=== PATIENT | female | born 1965 | race Caucasian/White ===

== ENCOUNTER 2017-07-06 08:30 | Emergency (ER) | payer OTHER ==
[~2017-07-06] VITALS: Wt 78.0 kg
--- NOTE | 2017-07-06 08:51 | ERD ---
ER Documentation Chief Complaint Chief Complaint SUBSTERNAL CP WITH COUGH AND CONGESTION FOR 2 DAYS. MILD DISTRESS NOTED HPI This is a 51-year-old female with a past medical history of diabetes, GERD who is presenting with 2 days of fever, cough and congestion, woke up this morning with a headache and nausea with associated chest pain with coughing. The patient endorses GERD symptoms today as well which she feels may also be causing her burning moderate chest pain and associated intermittent nausea. She reports muscle aches and pains as well. Her headache was discribed as mild to moderate, generalized, aching, not associated with photophobia or phonophobia or neck stiffness/pain. Her daughter was recently diagnosed with the flu. The patient has had no vision changes. The patient does not endorse neck pain. The patient denies lightheadedness or dizziness. The patient has had no shortness of breath or trouble breathing. The patient denies vomiting. The patient endorses mild epigastric tenderness but denies changes to bowel movements or urination. The patient has had no focal deficits. The patient has had no weakness or numbness or tingling to the face or extremities. She does take an aspirin daily. ROS All systems reviewed and are negative except as per history of present illness. Medications Home Meds Reported Medications Pantoprazole* (Pantoprazole*) 40 Mg Tablet.dr, 40 MG PO AC BREAKFAST, TAB 07/06/17 Loratadine* (Loratadine*) 10 Mg Tablet, 10 MG PO DAILY, #30 TAB 07/06/17 Linagliptin (TRADJENTA) 5 Mg Tablet, 5 MG PO DAILY, TAB 07/06/17 Metformin* (Glucophage*) 500 Mg Tab, 500 MG PO BID WITH MEALS, #60 TAB 07/06/17 Aspirin* (Aspirin* Chew) 81 Mg Tab.chew, 81 MG PO DAILY, TAB.CHEW 07/06/17 Allergies Allergies: Coded Allergies: Penicillins (Verified Allergy, Severe, 07/06/17) PMhx/Soc History of Surgery: No Hx Neurological Disorder: No Hx Respiratory Disorders: No Hx Cardiac Disorders: Yes (DM) Hx Psychiatric Problems: No Hx Miscellaneous Medical Probl: Yes (GERD) Hx Alcohol Use: No Hx Substance Use: No Hx Tobacco Use: No FmHx Family History: diabetes, No coronary disease Physical Exam Vitals Vital Signs Date Time Temp Pulse Resp B/P Pulse Ox O2 Delivery O2 Flow Rate FiO2 07/06/17 13:03 97.6 69 17 113/62 98 Room Air 07/06/17 12:15 66 16 114/86 97 Room Air 07/06/17 09:06 Nasal Cannula 2 07/06/17 08:35 98.2 78 20 131/78 96 Physical Exam Const: No apparent distress, well-developed, well-nourished Head: Normocephalic, Atraumatic Eyes: Normal Conjunctiva. Extraocular movements intact. Pupils equal, round and reactive to light ENT: Normal External Ears, Nose and Mouth. Neck: Full range of motion. No meningismus. Resp: Clear to auscultation bilaterally, No wheezes, rales or rhonchi Cardio: Regular rate and rhythm. No murmurs, rubs or gallops Abd: Mild epigastric tenderness. Soft, non distended. Normal bowel sounds Skin: No petechiae or rashes Back: No midline tenderness. No CVA tenderness Ext: No cyanosis, or edema Neur: Awake and alert, oriented 4. Cranial nerves intact. No facial droop. Normal strength, sensation and coordination. Psych: Normal Mood and Affect Result Diagram: 07/06/17 0845 07/06/17 0845 Results 24 hrs Laboratory Tests Test 07/06/17 08:45 White Blood Count 11.710^3/ul Red Blood Count 4.2310^6/ul Hemoglobin 12.7g/dl Hematocrit 37.9% Mean Corpuscular Volume 89.6fl Mean Corpuscular Hemoglobin 30.0pg Mean Corpuscular Hemoglobin Concent 33.5g/dl Red Cell Distribution Width 12.2% Platelet Count 93458^3/UL Mean Platelet Volume 10.6fl Neutrophils % 47.0% Lymphocytes % 38.4% Monocytes % 5.8% Eosinophils % 7.8% Basophils % 0.6% Nucleated Red Blood Cells % 0.0/100WBC Neutrophils # 5.510^3/ul Lymphocytes # 4.510^3/ul Monocytes # 0.710^3/ul Eosinophils # 0.910^3/ul Basophils # 0.110^3/ul Nucleated Red Blood Cells # 0.010^3/ul Sodium Level 140mmol/L Potassium Level 4.0mmol/L Chloride Level 105mmol/L Carbon Dioxide Level 26mmol/L Anion Gap 13 Blood Urea Nitrogen 16mg/dl Creatinine 0.62mg/dl Glucose Level 190mg/dl Calcium Level 10.6mg/dl Troponin I < 0.012ng/ml Current Medications Medications (Trade) Dose Ordered Sig/Britney Route PRN Reason Start Time Stop Time Status Last Admin Dose Admin Sodium Chloride (NS) 1,000 ml @ 1,000 mls/hr Q1H ONCE IV 07/06/17 11:30 07/06/17 12:29 DC 07/06/17 11:50 Ketorolac Tromethamine (Toradol) 15 mg ONCE STAT IV 07/06/17 11:11 07/06/17 11:13 DC 07/06/17 11:50 Acetaminophen (Tylenol Tab) 650 mg ONCE ONCE PO 07/06/17 13:00 07/06/17 13:01 DC 07/06/17 12:59 Famotidine (Pepcid Iv) 20 mg ONCE ONCE IV 07/06/17 13:00 07/06/17 13:01 DC 07/06/17 13:00 Miscellaneous Medication (Gi Cocktail (2)) 40 ml ONCE ONCE PO 07/06/17 13:00 07/06/17 13:01 DC 07/06/17 12:58 Procedures/MDM MDM The patient's presentation warrants further investigation. LABS The patient's blood work was obtained and reviewed. The patient's CBC shows leukocytosis but no left shift. The patient is afebrile and does not appear systemically ill. I do not suspect a systemic infection. The patient is not anemic today. The patient's platelet count is unremarkable. The patient's BMP shows no signs of metabolic or electrolyte emergencies. The patient has unremarkable renal function testing. Troponin is negative. The patient's flu testing was negative. EKG EKG read by me: Rate/Rhythm: Regular rate and rhythm at a rate of 80 bpm Intervals: Normal Strang: Normal Impression: Nonspecific repolarization changes in leads I and aVL, but no ST or T-wave changes concerning for acute coronary syndrome IMAGING CXR FINDINGS: The heart and mediastinum are within normal limits. The lungs are clear. There is no pleural effusion or pneumothorax. IMPRESSION: No acute disease. Electronically viewed and signed by .Leandro Mares MD, on 07/06/2017 08: 59 TREATMENT/DISPOSITION The patient was given iv fluids, toradol, tylenol with significant improvement of her symptoms. I have suspicion of a URI. The patient has a history of GERD, which may also be contributory. The patient was given pepcid and a gi cocktail. The patient does take aspirin daily. This should be reevaluated by her PCP. She was encouraged to take tylenol for her discomfort during this illness. The patient's flu testing was negative, but she may still have a viral illness. I believe this will be self limited. The patient's HEART score is equal to or less than 3. The patient's troponin and EKG are reassuring. This stratifies the patient into the low risk (<1%) group for an major adverse cardiac event within the next 30 days. I have low suspicion for acute coronary syndrome. The patient's chest xray does not reveal pneumonia or pneumothorax or pleural effusions or pulmonary edema. She does not have a widened mediastinum and does not have signs or symptoms concerning for thoracic aortic aneurysm or dissection. She does not have pneumomediastinum or signs concerning for esophageal tear or rupture. She has no clinical or radiographic signs of paricardial effusion or tamponade. She does not have pneumoperitoneum and I have decreased suspicion of viscus perforation and a possibility of referred pain. The patient does not have a history of heart failure and I have low suspicion for this. The patient does not have a diagnosis of COPD and is not wheezing today. I have low suspicion for PE. She is not tachypneic or hypoxic. She is breathing comfortably and without pleuritc pain. Her heart rate is unremarkable. She is not on hormonal therapy. She has no history of clotting or bleeding disorders. She has no calf tenderness. She has had no hemoptysis. Shared decision making was enacted. The risks and benefits of admission and discharge were discussed with the patient and it was ultimately decided that the patient would be discharged with close outpatient follow up and evaluationg for functional testing within 72 hours. At this time, I feel that the patient stable for discharge. The patient will need follow-up with his primary care physician in 2-3 days. The patient will be given strict precautions with which to return to the emergency department. The patient's blood pressure was elevated at greater than 120/80 while in the emergency department. The patient was otherwise stable with no evidence of hypertensive urgency or emergency or end organ damage. The patient does not require admission for blood pressure control. I have discussed with the patient the risks of hypertension. I have advised the patient to follow up with the primary care physician for outpatient monitoring and treatment for hypertension in 2-3 days. I have instructed the patient to return to the ER for any new or worsening symptoms including chest pain, shortness of breath, headache, blurred vision, confusion, nausea, vomiting or LOC. Disclaimer: Inadvertent spelling and grammatical errors are likely due to EHR/ dictation software use and do not reflect on the overall quality of patient care. Note that the electronic time recorded on this note does not necessarily reflect the actual time of the patient encounter. Departure Diagnosis: Primary Impression: URI (upper respiratory infection) URI type: unspecified URI Qualified Code: J06.9 - Upper respiratory tract infection, unspecified type Additional Impressions: Chest pain Chest pain type: unspecified Qualified Code: R07.9 - Chest pain, unspecified type Myalgia Epigastric pain Condition: Stable JEFFERSON MOMIN MD Jul 06, 2017 08:51
--- NOTE | 2017-07-06 08:59 | RADRPT ---
PROCEDURE: XR Chest. CLINICAL INDICATION: chest pain TECHNIQUE: Single frontal view of the chest was obtained COMPARISON: None FINDINGS: The heart and mediastinum are within normal limits. The lungs are clear. There is no pleural effusion or pneumothorax. RPTAT: AA IMPRESSION: No acute disease. .Leandro Mares MD, Date Time Electronically viewed and signed by .Leandro Mares MD, on 07/06/2017 08:59 .S/
[2017-07-06 09:02] LABS: BASOPHIL # 0.1 10^3/ul (0.0-0.1); BASOPHILS % 0.6 % (0.0-2.0); EOSINOPHILS # 0.9 10^3/ul (0.0-0.5); EOSINOPHILS % 7.8 % (0.0-7.0); HEMATOCRIT 37.9 % (37.0-47.0); HEMOGLOBIN 12.7 g/dl (12.0-16.0); LYMPHOCYTES # 4.5 10^3/ul (0.8-2.9); LYMPHOCYTES % 38.4 % (15.0-51.0); MEAN CORPUSCULAR HGB CONC 33.5 g/dl (32.0-37.0); MEAN CORPUSCULAR VOLUME 89.6 fl (82.0-101.0); MEAN PLATELET VOLUME 10.6 fl (7.4-10.4); MONOCYTE # 0.7 10^3/ul (0.3-0.9); MONOCYTES % 5.8 % (0.0-11.0); NEUTROPHIL # 5.5 10^3/ul (1.6-7.5); PLATELET COUNT 292 10^3/UL (140-415); RED BLOOD COUNT 4.23 10^6/ul (4.20-5.40); RED CELL DISTRIBUTION WIDTH 12.2 % (11.5-14.5); WHITE BLOOD COUNT 11.7 10^3/ul (4.8-10.8)
[2017-07-06 09:51] LABS: ANION GAP 13 (8-16); BLOOD UREA NITROGEN 16 mg/dl (7-20); CALCIUM 10.6 mg/dl (8.4-10.2); CARBON DIOXIDE 26 mmol/L (21-31); CHLORIDE 105 mmol/L (97-110); CREATININE 0.62 mg/dl (0.44-1.00); GLUCOSE 190 mg/dl (70-220); SODIUM 140 mmol/L (135-144)
[2017-07-06 10:12] LABS: TROPONIN-I < 0.012 ng/ml (0.00-0.12)
[2017-07-06] MEDS ORDERED: ASPI81TA3 PO (10:24)
[2017-07-06] MEDS ORDERED: METF500T4 PO (10:24)
[2017-07-06] MEDS ORDERED: PANT40TA4 PO (10:25)
[2017-07-06] MEDS ORDERED: LORA10TA3 PO (10:25)
[2017-07-06] MEDS ORDERED: LINA5TAB PO (10:25)
[2017-07-06] MEDS ORDERED: KETOROLAC 15 MG INJ IV STA (11:11)
[2017-07-06] MEDS ORDERED: SOD CHLORIDE 0.9% 1,000 ML IV ONE (11:30)
[2017-07-06] MEDS ORDERED: FAMOTIDINE 20 MG INJ IV ONE (13:00)
[2017-07-06] MEDS ORDERED: ACETAMINOPHEN 325 MG TAB PO ONE (13:00)
[2017-07-06] MEDS ORDERED: LIDOCAINE/MYLANTA 40 ML BTL PO ONE (13:00)
[2017-07-06 13:03] VITALS: BP 113/62; PULSE 69; RESP 17; TEMP 97.6
== END 2017-07-06 13:15 | disposition home or self-care (01) ==
LOC: E/R 08:30
DX: J06.9 Acute upper respiratory infection, unspecified (principal); M79.1 Myalgia; R10.13 Epigastric pain; E11.9 Type 2 diabetes mellitus without complications; Z79.82 Long term (current) use of aspirin; Z79.84 Long term (current) use of oral hypoglycemic drugs
CPT/HCPCS: 36415; 71010; 80048; 84484; 85025; 87400; 93005; 96374; 96375; J1885; J7030; Z7502; Z7610

== ENCOUNTER 2018-09-02 15:06 | Inpatient (IN) | payer OTHER ==
[~2018-09-02] VITALS: Ht 144.8 cm; Wt 86.1 kg
[~2018-09-02 15:06] MED LIST: ASPI-903 PO; LINA5TAB PO; LORA10TA3 PO; METF-849 PO; PANT40TA4 PO
[2018-09-02] MEDS ORDERED: LIDOCAINE/MYLANTA 40 ML BTL PO STA (20:12)
[2018-09-02] MEDS ORDERED: METOCLOPRAMIDE 10 MG INJ IV ONE (20:30)
[2018-09-02] MEDS ORDERED: FAMOTIDINE 20 MG INJ IV ONE (20:30)
[2018-09-02] MEDS ORDERED: DIPHENHYDRAMINE 50 MG INJ IV ONE (20:30)
[2018-09-03] VITALS (14 sets, daily range): BP systolic 92–145; BP diastolic 44–80; PULSE 52–120; RESP 17–24; Ht 144.8 cm; Wt 86.1 kg
--- NOTE | 2018-09-03 01:12 | ERD ---
ER Documentation Chief Complaint Chief Complaint EPIGASTRIC PAIN WITH N/V/D SINCE LAST NIGHT HPI 53 year-old [female] coming in today with Chief Complaint: Abdominal pain History of Present Illness: Daughter brings patient in today with complaint of abdominal pain since last night. Associated symptoms includes nausea, vomiting over 10 times since 3 AM, diarrhea. Medications at home includes milk of magnesia, [place], ibuprofen, Protonix or symptoms; minimal relief with medications at home. Review of systems: All systems were reviewed and are negative except for what is indicated in the history of present illness. Past Medical History: Diabetes; gastritis Social History: [Patient denies tobacco, alcohol, elicit drug use] Medications: [Reviewed as documented Nursing Notes] Allergies: PCN; [Reviewed as documented in Nursing Notes] Social Concerns: Denies ROS All systems reviewed and are negative except as per history of present illness. Medications Home Meds Active Scripts Docusate Sodium* (Colace*) 100 Mg Capsule, 100 MG PO BID, #60 CAP Prov:MESERET JACKMAN V. [employer] 09/04/18 Hydrocodone/Acetaminophen ([place] 5-325 Tablet) 1 Each Tablet, 1 EACH PO Q6 for pain, #15 TAB Prov:JACKMANMESERET JAMES V. [employer] 09/04/18 Metronidazole* (Metronidazole*) 500 Mg Tablet, 500 MG PO TID for 5 Days, #15 TAB Prov:MESERET JACKMAN [employer]. [employer] 09/04/18 Ciprofloxacin Hcl* (Ciprofloxacin Hcl*) 500 Mg Tablet, 500 MG PO BID, #10 TAB Prov:JACKMANJORGE AA V. [employer] 09/04/18 Reported Medications Glimepiride* (Glimepiride*) 4 Mg Tablet, 4 MG PO WITH BREAKFAST, TAB 09/03/18 Calcium Carbonate* (Calcium Carbonate*) 600 MG Ca Tab, 600 MG PO DAILY, TAB 09/03/18 Sitagliptin* (Januvia*) 100 Mg Tablet, 100 MG PO DAILY, #30 TAB 09/03/18 Pantoprazole* (Pantoprazole*) 40 Mg Tablet.dr, 40 MG PO AC BREAKFAST, TAB 07/06/17 Loratadine* (Loratadine*) 10 Mg Tablet, 10 MG PO DAILY, #30 TAB 07/06/17 Linagliptin (TRADJENTA) 5 Mg Tablet, 5 MG PO DAILY, TAB 07/06/17 Metformin* (Glucophage*) 500 Mg Tab, 500 MG PO BID WITH MEALS, #60 TAB 07/06/17 Discontinued Reported Medications Aspirin* (Aspirin* Chew) 81 Mg Tab.chew, 81 MG PO DAILY, TAB.CHEW 07/06/17 Allergies Allergies: Coded Allergies: Penicillins (Verified Allergy, Severe, 07/06/17) PMhx/Soc History of Surgery: No Hx Neurological Disorder: No Hx Respiratory Disorders: No Hx Cardiac Disorders: Yes (DM) Hx Psychiatric Problems: No Hx Miscellaneous Medical Probl: Yes (GERD) Hx Alcohol Use: No Hx Substance Use: No Hx Tobacco Use: No Smoking Status: Never smoker FmHx Family History: diabetes (DENIES), coronary disease (DENIES); No other Physical Exam Vitals Physical Exam Const: No acute distress Head: Atraumatic Eyes: Normal Conjunctiva ENT: Normal External Ears, Nose and Mouth. Neck: Full range of motion. No meningismus. Resp: Clear to auscultation bilaterally Cardio: Regular rate and rhythm, no murmurs Abd: Soft, non distended. Normal bowel sounds. Tenderness to palpation to epigastric. Skin: No petechiae or rashes Back: No midline or flank tenderness Ext: No cyanosis, or edema Neur: Awake and alert Psych: Normal Mood and Affect Result Diagram: 09/04/1852309/04/1824 Results 24 hrs Laboratory Tests Test 09/02/18 20:19 09/02/18 20:34 Urine Color STRAW Urine Clarity CLEAR Urine pH 7.0 Urine Specific [place] 1.011 Urine Ketones NEGATIVE mg/dL Urine Nitrite NEGATIVE mg/dL Urine Bilirubin NEGATIVE mg/dL Urine Urobilinogen NEGATIVE mg/dL Urine Leukocyte Esterase 1+ [place]/ul Urine Microscopic RBC 0 /HPF Urine Microscopic WBC 6 /HPF Urine Hemoglobin NEGATIVE mg/dL Urine Glucose NEGATIVE mg/dL Urine Total Protein NEGATIVE mg/dl Urine Opiates Screen Negative Urine Barbiturates Negative Urine Amphetamines Screen Negative Urine Benzodiazepines Screen Negative Urine Cocaine Screen Negative Urine Cannabinoids Negative White Blood Count 17.4 10^3/ul Red Blood Count 4.32 10^6/ul Hemoglobin 12.8 g/dl Hematocrit 39.3 % Mean Corpuscular Volume 91.0 fl Mean Corpuscular Hemoglobin 29.6 pg Mean Corpuscular Hemoglobin Concent 32.6 g/dl Red Cell Distribution Width 11.8 % Platelet Count 299 10^3/UL Mean Platelet Volume 10.3 fl Immature Granulocytes % 0.600 % Neutrophils % 75.1 % Lymphocytes % 17.4 % Monocytes % 5.5 % Eosinophils % 0.9 % Basophils % 0.5 % Nucleated Red Blood Cells % 0.0 /100WBC Immature Granulocytes # 0.100 10^3/ul Neutrophils # 13.1 10^3/ul Lymphocytes # 3.0 10^3/ul Monocytes # 1.0 10^3/ul Eosinophils # 0.2 10^3/ul Basophils # 0.1 10^3/ul Nucleated Red Blood Cells # 0.0 10^3/ul Sodium Level 139 mmol/L Potassium Level 4.0 mmol/L Chloride Level 101 mmol/L Carbon Dioxide Level 26 mmol/L Anion Gap 12 Blood Urea Nitrogen 12 mg/dl Creatinine 0.45 mg/dl Est Glomerular Filtrat Rate mL/min > 60 mL/min Glucose Level 145 mg/dl Calcium Level 11.1 mg/dl Total Bilirubin 0.3 mg/dl Direct Bilirubin 0.00 mg/dl Indirect Bilirubin 0.3 mg/dl Aspartate Amino Transf (AST/SGOT) 35 IU/L Alanine Aminotransferase (ALT/SGPT) 28 IU/L Alkaline Phosphatase 110 IU/L Total Protein 8.7 g/dl Albumin 4.5 g/dl Globulin 4.20 g/dl Albumin/Globulin Ratio 1.07 Lipase 66 U/L Current Medications Medications Dose Sig/Britney Start Time Status Last (Trade) Ordered Route PRN Stop Time Admin Dose Reason Admin 40 ml ONCE STAT 09/02/18 DC 09/02/18 Miscellaneous PO 20:12 20:27 Medication 09/02/18 20:16 (Gi Cocktail (2)) Famotidine 20 mg ONCE ONCE 09/02/18 DC 09/02/18 (Pepcid Iv) IV 20:30 20:28 09/02/18 20:31 10 mg ONCE ONCE 09/02/18 DC 09/02/18 Metoclopramid IV 20:30 20:28 e HCl 09/02/18 20:31 (Reglan) 25 mg ONCE ONCE 09/02/18 DC 09/02/18 Diphenhydrami IV 20:30 20:28 ne HCl 09/02/18 20:31 (Benadryl) Sodium 1,000 ml @ Q1H ONCE 09/03/18 DC 09/03/18 Chloride 1,000 mls/hr IV 00:00 01:33 09/03/18 00:59 Sodium 1,000 ml @ Q1H ONCE 09/03/18 DC Chloride 1,000 mls/hr IV 01:30 09/03/18 01:32 Clindamycin 50 ml @ 50 ONCE IVPB 09/03/18 DC HCl/ mls/hr 01:30 Dextrose 09/03/18 01:30 100 ml @ ONCE ONCE 09/03/18 DC 09/03/18 Metronidazole 100 mls/hr IVPB 01:30 01:46 09/03/18 02:29 200 ml @ ONCE ONCE 09/03/18 DC 09/03/18 Ciprofloxacin 200 mls/hr IVPB 01:30 02:58 / Dextrose 09/03/18 02:29 Sodium 1,000 ml @ [id number] IV 09/03/18 DC 09/03/18 Chloride 80 mls/hr 02:04 02:58 09/03/18 13:09 Procedures/MDM ED course includes a thorough examination and history. ED course includes labs; CBC, CMP, lipase, urinalysis. ED course includes medications GI cocktail, d iphenhydramine, Reglan, famotidine. ED course includes testing; EKG. ----- Patient reassessment at 23:30: Patient with minimal relief of pain with medications ordered. Nausea decreased. Elevated white blood count. Urinalysis negative. Lipase within normal limits. Due to persistent pain will order CT abdomen and pelvis to identify any pathologic findings. Daughter at bedside. ------ ED physician consultation at 0110: Updated Dr. Serna on labs and radiology findings. Plan of care to add coagulation studies and start antibiotics ciprofloxacin and metronidazole. ------- Patient reassessment at 0120: Patient updated on CT results. Plan of care discussed for admission and possible surgery. ------ Otherwise healthy patient presenting with constellation of symptoms likely representing acute cholecystitis as characterized by history, physical exam findings [radiologic/lab findings]. No respiratory distress, otherwise relatively well appearing and nontoxic. Patient educated on plan of care. Disposition for admission. LAMBERTO CHILDERS NP Sep 03, 2018 01:12
[2018-09-03] MEDS ORDERED: SOD CHLORIDE 0.9% 1,000 ML IV ONE ×2 (01:30)
[2018-09-03] MEDS ORDERED: CLINDAMYCIN 900 MG/D5W (PMX) 50 ML IVPB SCH (01:30)
[2018-09-03] MEDS ORDERED: CIPROFLOXACIN 400MG/D5W 200 ML IVPB ONE (01:30)
[2018-09-03] MEDS ORDERED: metroNIDAZOLE 500 MG/NS (PMX) 100 ML IVPB ONE (01:30)
[2018-09-03] MEDS ORDERED: SOD CHLORIDE 0.9% 1,000 ML IV SCH (02:04)
--- NOTE | 2018-09-03 02:09 | HP ---
Date/Time of Note Date/Time of Note DATE: 09/03/18 TIME: 02:09 Assessment/Plan VTE Prophylaxis SCD applied (from [facility] [place]): Yes Pharmacological prophylaxis: NA/contraindicated Pharm contraindication: low risk/ambulating Assessment/Plan Hospital Course This is a 53-year-old female being admitted to the [facility] floor: #1 acute cholecystitis: CT scan as well as gallbladder ultrasound show signs of acute cholecystitis along with a non-mobile stone in the neck of the gallbladder. At the current time we will keep the patient n.p.o., IV fluid hydration with normal saline. Zosyn IV. Pain management. General surgery is Luis M been consulted Dr. Conner. Patient likely will need laparoscopic cholecystectomy along with intraoperative cholangiogram. #2 diabetes mellitus: We will check hemoglobin A 1C, will hold the patient's ho me oral medications, #3 morbid obesity: We will check hemoglobin A1c, lipid panel, TSH, encourage d iet and lifestyle modification #4 gastritis: Continue Protonix #4 DVT GI prophylaxis: SCDs, Protonix Result Diagram: 09/02/18203309/02/182033 Results 24hrs Laboratory Tests Test 09/02/18 20:19 09/02/18 20:34 Urine Color STRAW Urine Clarity CLEAR Urine pH 7.0 Urine Specific [place] 1.011 Urine Ketones NEGATIVE Urine Nitrite NEGATIVE Urine Bilirubin NEGATIVE Urine Urobilinogen NEGATIVE Urine Leukocyte Esterase 1+ H Urine Microscopic RBC 0 Urine Microscopic WBC 6 H Urine Hemoglobin NEGATIVE Urine Glucose NEGATIVE Urine Total Protein NEGATIVE White Blood Count 17.4 #H Red Blood Count 4.32 Hemoglobin 12.8 Hematocrit 39.3 Mean Corpuscular Volume 91.0 Mean Corpuscular Hemoglobin 29.6 Mean Corpuscular Hemoglobin Concent 32.6 Red Cell Distribution Width 11.8 Platelet Count 299 Mean Platelet Volume 10.3 Immature Granulocytes % 0.600 H Neutrophils % 75.1 Lymphocytes % 17.4 Monocytes % 5.5 Eosinophils % 0.9 Basophils % 0.5 Nucleated Red Blood Cells % 0.0 Immature Granulocytes # 0.100 H Neutrophils # 13.1 H Lymphocytes # 3.0 H Monocytes # 1.0 H Eosinophils # 0.2 Basophils # 0.1 Nucleated Red Blood Cells # 0.0 Sodium Level 139 Potassium Level 4.0 Chloride Level 101 Carbon Dioxide Level 26 Anion Gap 12 Blood Urea Nitrogen 12 Creatinine 0.45 Est Glomerular Filtrat Rate mL/min > 60 Glucose Level 145 Calcium Level 11.1 H Total Bilirubin 0.3 Direct Bilirubin 0.00 Indirect Bilirubin 0.3 Aspartate Amino Transf (AST/SGOT) 35 Alanine Aminotransferase (ALT/SGPT) 28 Alkaline Phosphatase 110 Total Protein 8.7 H Albumin 4.5 Globulin 4.20 H Albumin/Globulin Ratio 1.07 Lipase 66 HPI/ROS Admit Date/Time Admit Date/Time Hx of Present Illness Chief complaint: Epigastric pain radiating to the right and left This is a 53-year-old female who presents to the emergency department complaining of epigastric pain across the abdomen for the last 2 days. Patient reports that along with the pain she is also been expensing vomiting and diarrhea. She denies any fevers. Denies any chest pain or shortness of breath. Allergies: Penicillin Medications: See HALIE RIOJAS Const: As per HPI Eyes : No pain discharge or redness or change in visual acuity ENT: No pain, sore throat, congestion, congestion, dysphagia or discharge Respiratory: No shortness of breath, cough, sputum, wheezing, or pleuritic pain Cardiovascular: No chest pain, palpitation, PND, or edema GI : as per HPI Genitourinary: No dysuria, hematuria, flank pain , discharge or CVA tenderness Musculoskeletal: No joint pain, back pain, neck pain, restricted range of motion in neck or joints Skin: No rash, bruising or hives Neuro: No headache, dizziness, syncope, seizure, focal weakness Endocrine: No polyuria, polydipsia, temperature intolerance Psych: No hallucination, depression, anxiety or suicidal ideation PMH/Family/Social Past Medical History Diabetes mellitus, gastritis, seasonal allergies Medications Current Medications Metronidazole 100 ml @ 100 mls/hr ONCE ONCE IVPB Last administered on 09/03/18at 01:46; Admin Dose 100 MLS/HR; Start 09/03/18 at 01:30; Stop 09/03/18 at 02:29 Ciprofloxacin/ Dextrose 200 ml @ 200 mls/hr ONCE ONCE IVPB ; Start 09/03/18 at 01:30; Stop 09/03/18 at 02:29 Coded Allergies: Penicillins (Verified Allergy, Severe, 07/06/17) Past Surgical History Past Surgical Hx: no surgical history Family History Significant Family History: no pertinent family hx Social History Alcohol Use: none Smoking Status: Never smoker Drug Use: none Exam/Review of Systems Vital Signs Vitals Vital Signs Date Temp Pulse Resp B/P (MAP) Pulse Ox O2 O2 Flow FiO2 Time Delivery Rate 09/02/18 99.3 69 26 141/69 100 15:20 (93) Exam Exam General: Patient is a pleasant female currently lying in bed in no acute distress HEENT: Atraumatic, normocephalic. The pupils are equal, round and reactive. Extraocular motor are intact Neck: Supple with full range of motion. No rigidity or meningismus Chest: Nontender Lungs: Clear to auscultation bilaterally no crackles rales or wheezing Heart: Normal S1-S2, Regular rhythm and rate. No murmur, S3, or S4 Abdomen:morbid obesity, tenderness ablation of the epigastric area as well as right upper quadrant, normal bowel sounds, nondistended. No CVA tenderness palpation bilaterally Extremities: Normal to inspection, no edema no cyanosis Neurologic: Normal mental status, speech normal, cranial nerves II through XII are intact, motor and sensory are intact, no focal weakness Additional Comments PROCEDURE: CT abdomen and pelvis without contrast. CLINICAL INDICATION: 53-year-old female. Abdominal pain. TECHNIQUE: CT scan of the abdomen and pelvis without contrast was performed on a multi-slice CT scanner utilizing axial imaging from the lung bases through the pubis symphysis. One or more the following does reduction techniques were utilized: Automated exposure control, adjustment of the mA/ or kV according to patient's size, or use of iterative reconstruction technique. Sagittal and coronal reformatted images were made. DICOM images are available for review. The CTDIvol is 22.51 mGy and the DLP is 12 39.43 mGycm. COMPARISON: None. FINDINGS: CT abdomen Visualized lung bases: Clear. No significant pleural or pericardial effusion. Liver: Limited evaluation without IV contrast. No gross lesion. Gallbladder and bile ducts: No calcified gallstones or pericholecystic fluid. No biliary ductal dilatation. Spleen: Normal appearance. Pancreas: Normal appearance. No ductal dilatation. No mass. No peripancreatic stranding. Adrenal glands: Normal appearance. Kidneys: No hydronephrosis or renal stones. Vasculature: No abdominal aortic aneurysm. Calcified plaque present. Negative IVC. Lymph nodes: No adenopathy. GI: No hiatal hernia. No evidence of obstruction or bowel wall thickening. Peritoneal cavity: No free fluid or free air. CT pelvis GI: Negative terminal ileum. Negative appendix. Sigmoid diverticulosis. Negative rectum. : Normal appearing distal ureters and urinary bladder. Normal uterus and ovaries. Peritoneal cavity: No free fluid or loculated fluid collections. Lymph nodes: No adenopathy. Osseous structures: Old avulsion fracture off the lateral right acetabulum. No lytic or blastic lesions. Multilevel lumbar and thoracic spondylosis. No endplate fracture. IMPRESSION: 1. Acute cholecystitis. No calcified gallstones identified. 2. Sigmoid diverticulosis. RPTAT: HLRS Jose Lange, Physician Date Time Electronically viewed and signed by Jose Lange Physician on 09/03/2018 00:43 RS/ CC: LAMBERTO CHILDERS NP [id number] PROCEDURE: Ultrasound gallbladder CLINICAL INDICATION: abdominal pain TECHNIQUE: Deutsch scale, color flow and Doppler ultrasound images of the abdomen. COMPARISON: None FINDINGS: Pancreas: The head and body of the pancreas are unremarkable. Tail is obscured by shadowing bowel gas. Vasculature: Aorta and inferior vena cava are normal in caliber. Liver: Liver demonstrates normal size and echotexture. No parenchymal lesions are identified. Normal directional flow toward the liver is demonstrated in the main portal vein. Gallbladder: There is a non mobile stone in the neck of the gallbladder. Gallbladder wall is mildly thickened and there is trace pericholecystic fluid. Biliary system: No significant dilatation of the intrahepatic or extrahepatic biliary system. Common bile duct measures 5 mm diameter. Right Kidney: Measures 8.8 cm in length. No hydronephrosis, intrarenal calcification or parenchymal lesion. No visible perinephric fluid. Additional findings: None IMPRESSION: Non mobile stone in the neck of the gallbladder. Mild associated wall thickening and trace pericholecystic fluid, consistent with acute cholecystitis. RPTAT: HJBB x-Manjit Bowns, Physician Date Time Electronically viewed and signed by Physician Jerel on 09/03/2018 02:49 xB/ CC: LANCE GARRISON [id number] LANCE GARRISON Sep 03, 2018 02:09
--- NOTE | 2018-09-03 02:12 | QN ---
Documentation Comment Consultation note Subjective: This patient was evaluated by the PA under my direct supervision. Briefly, this is a 53-year-old female with a past medical history of diabetes and gastritis who is presenting with right upper quadrant abdominal pain. Family history: As indicated on the initial history and physical of this ER vis it Objective: Vital signs reviewed Const: No apparent distress, well-developed, well-nourished Head: Normocephalic, Atraumatic Eyes: Normal Conjunctiva. ENT: Normal External Ears, Nose and Mouth. Neck: No meningismus. Resp: Symmetric chest wall ramos, no audible wheezes Cardio: Regular rate Abd: Right upper quadrant abdominal pain Skin: No petechiae or rashes Back: Deferred Ext: No cyanosis, or edema Neur: Awake and alert, oriented 4. No facial droop. Normal strength and sensation. Psych: Normal mood and affect Assessment: Cholecystitis MDM The patient's presentation warrants further investigation. Previous medical records, if available, were reviewed. LABS The patient's laboratory testing was obtained and reviewed. No emergent treatment was required unless described below. CBC: Leukocytosis, concerning for an infection. No E/o of anemia or thrombocytopenia CMP: No E/o severe acidosis or alkalosis or renal failure or liver disease or diabetic ketoacidosis Lipase: No E/o pancreatitis Urine: No E/o acute infection or hematuria IMAGING Imaging and Radiology interpretation reviewed. CT Abd/Pelvis 1. Acute cholecystitis. No calcified gallstones identified. 2. Sigmoid diverticulosis. Electronically viewed and signed by Physician Rupesh on 09/03/2018 00:43 TREATMENT/DISPOSITION The patient presents with symptoms concerning for acute cholecystitis. The patient has an elevated white count with the CT scan being read as acute cholecystitis. The patient was given Cipro and Flagyl in the emergency department. She has an allergy to penicillin. At this time, I feel that the patient requires admission for further evaluation and management. The patient will be admitted to [Panel] in accordance with the patient's insurance. The patient was accepted by Dr. Soliz at 0205AM on 09/03/2018. The on-call general surgeon, Dr. Conner, was consulted on the case. He requested that an ultrasound of the gallbladder be ordered, which was done. He will see the patient in the hospital. Please see PA note for further detail. Disclaimer: Inadvertent spelling and grammatical errors are likely due to EHR/dictation software use and do not reflect on the overall quality of patient care. Note that the electronic time recorded on this note does not necessarily reflect the actual time of the patient encounter. JEFFERSON MOMIN MD Sep 03, 2018 02:09
[2018-09-03] MEDS ORDERED: DOCUSATE SODIUM 100 MG CAP PO PRN (02:30)
[2018-09-03] MEDS ORDERED: BISACODYL (EC) 5 MG TAB PO PRN (02:30)
[2018-09-03] MEDS ORDERED: ONDANSETRON 4 MG INJ IV PRN ×4 (02:30→14:30)
[2018-09-03] MEDS ORDERED: ACETAMINOPHEN 325 MG TAB PO PRN ×3 (02:30→13:30)
[2018-09-03] MEDS ORDERED: HYDROmorphONE 0.5 MG/0.5 ML SYG IV PRN (02:30)
[2018-09-03] MEDS ORDERED: NACL 0.9% 3 ML SYG IV SCH (02:30)
[2018-09-03] MEDS ORDERED: SITA100T11 PO (04:10)
[2018-09-03] MEDS ORDERED: CALC600T24 PO (04:12)
[2018-09-03] MEDS ORDERED: GLIM4TAB PO (04:14)
[2018-09-03] MEDS: metroNIDAZOLE 500 MG/NS (PMX) 100 ML IVPB SCH ×4 (06:03→23:26)
[2018-09-03] MEDS ORDERED: GLYCOPYRROLATE 0.4 MG INJ ONE ×2 (07:00→14:18)
[2018-09-03] MEDS ORDERED: DESFLURANE 15 MIN ONE (07:00)
[2018-09-03] MEDS ORDERED: CIPRO 400 MG/200 ML D5W IVPB ONE (07:00)
[2018-09-03] MEDS: PANTOPRAZOLE (EC) 40 MG TAB PO SCH (08:30)
--- NOTE | 2018-09-03 11:58 | QN ---
Documentation Comment 53-year-old obese female with a history of diabetes, admitted with acute c holecystitis. Plan is laparoscopic versus open cholecystectomy with our surgery team. Follow- up surgery recommendation postoperatively. Continue n.p.o., antibiotics, pain control. Will start insulin subcutaneous protocol, Lantus, continue Tradjenta. Patient was seen in collaboration with Dr. Wetzel. MESERET JACKMAN NP Sep 03, 2018 11:58
[2018-09-03] MEDS: CIPROFLOXACIN 400MG/D5W 200 ML IVPB SCH ×2 (12:00→21:02)
[2018-09-03] MEDS: INSULIN ASPART [NOVOLOG] 3 ML PEN SC SCH ×3 (12:13→20:13)
[2018-09-03] MEDS ORDERED: GLUCAGON 1 MG INJ IM PRN (12:30)
[2018-09-03] MEDS ORDERED: DEXTROSE 50% 50 ML SYRINGE IV PRN ×2 (12:30)
[2018-09-03] MEDS ORDERED: BUPIVACAINE 0.5%/EPI (SDV) 30 ML INJ ONE (12:30)
[2018-09-03] MEDS ORDERED: GLUCOSE GEL 15 GRAM TUBE BUCCAL PRN (12:30)
[2018-09-03] MEDS ORDERED: LIDOCAINE 1% (MPF) 30 ML INJ ONE (12:30)
[2018-09-03] MEDS ORDERED: GLUCOSE GEL 15 GRAM TUBE PO PRN ×2 (12:30)
[2018-09-03] MEDS ORDERED: BUPIVACAINE 0.25% (MPF) 30 ML INJ ONE (12:43)
[2018-09-03] MEDS ORDERED: LIDOCAINE 1%/EPI (1:100,000) (MDV) 20 ML ONE (12:43)
--- NOTE | 2018-09-03 12:48 | PREAC ---
Date/Time of Note Date/Time of Note DATE: 09/03/18 TIME: 12:47 Anesthesia Eval and Record Evaluation Time Pre-Procedure Interview DATE: 09/03/18 TIME: 12:47 Age 53 Sex female NPO: 8 hrs Preoperative diagnosis CHOLELITHIASIS Planned procedure LAPAROSCOPIC CHOLECYSTECTOMY Past Medical History Past Medical History: Includes Cardio: HTN Endo: Diabetes GI: Obesity Surgery & Anesthesia Issues No known issue Meds Anticoagulation: No Beta Zulema within 24 hr: No Reason Beta Zulema not given: Pt. not on B-Zulema Reported Medications Glimepiride* (Glimepiride*) 4 Mg Tablet, 4 MG PO WITH BREAKFAST, TAB 09/03/18 Calcium Carbonate* (Calcium Carbonate*) 600 MG Ca Tab, 600 MG PO DAILY, TAB 09/03/18 Sitagliptin* (Januvia*) 100 Mg Tablet, 100 MG PO DAILY, #30 TAB 09/03/18 Pantoprazole* (Pantoprazole*) 40 Mg Tablet.dr, 40 MG PO AC BREAKFAST, TAB 07/06/17 Loratadine* (Loratadine*) 10 Mg Tablet, 10 MG PO DAILY, #30 TAB 07/06/17 Linagliptin (TRADJENTA) 5 Mg Tablet, 5 MG PO DAILY, TAB 07/06/17 Metformin* (Glucophage*) 500 Mg Tab, 500 MG PO BID WITH MEALS, #60 TAB 07/06/17 Aspirin* (Aspirin* Chew) 81 Mg Tab.chew, 81 MG PO DAILY, TAB.CHEW 07/06/17 Current Medications Pantoprazole (Protonix Tab) 40 mg AC BREAKFAST PO ; Start 09/03/18 at 07:00 Sodium Chloride 1,000 ml @ 80 mls/hr [id number] IV Last administered on 09/03/18at 02:58; Admin Dose 80 MLS/HR; Start 09/03/18 at 02:04 IV Flush (NS 3 ml) 3 ml PER PROTOCOL IV ; Start 09/03/18 at 02:30 Ondansetron HCl (Zofran Inj) 4 mg Q6H PRN IV NAUSEA/VOMITING; Start 09/03/18 at 02:30 Acetaminophen (Tylenol Tab) 650 mg Q6H PRN PO .PAIN 1-3 OR TEMP Last administered on 09/03/18at 09:44; Admin Dose 650 MG; Start 09/03/18 at 02:30 Hydromorphone HCl (Dilaudid) 0.5 mg Q4H PRN IV .SEVERE PAIN 7-10; Start 09/03/18 at 02:30 Docusate Sodium (Colace) 100 mg Q12H PRN PO .CONSTIPATION; Start 09/03/18 at 02:30 Bisacodyl (Dulcolax) 5 mg DAILY PRN PO .CONSTIPATION; Start 09/03/18 at 02:30 Metronidazole 100 ml @ 100 mls/hr Q6 IVPB Last administered on 09/03/18at 06:03; Admin Dose 100 MLS/HR; Start 09/03/18 at 06:00 Ciprofloxacin/ Dextrose 200 ml @ 200 mls/hr Q12 IVPB Last administered on 09/03/18at 12:00; Admin Dose 200 MLS/HR; Start 09/03/18 at 11:00 Ondansetron HCl (Zofran Inj) 4 mg BRIDGE ORDER PRN IV NAUSEA/VOMITING; Start 09/03/18 at 02:30; Stop 09/04/18 at 02:29 Acetaminophen (Tylenol Tab) 650 mg ER BRIDGE PRN PO .MILD PAIN 1-3 OR TEMP; Start 09/03/18 at 02:30; Stop 09/04/18 at 02:29 Linagliptin (Tradjenta) 5 mg DAILY PO ; Start 09/04/18 at 09:00 Diagnostic Test (Pha) (Accu-Chek) 1 ea 02 XX ; Start 09/04/18 at 02:00 Insulin Glargine (Lantus) 13 units DAILY@2000 SC ; Start 09/03/18 at 20:00 Insulin Aspart (Novolog Insulin Pen) NOVOLOG *MILD* ALGORITHM WITH MEALS BEDTIME SC ; Start 09/03/18 at 13:00 Miscellaneous Information 1 ea NOTE XX ; Start 09/03/18 at 12:30 Glucose (Glutose) 15 gm Q15M PRN PO DECREASED GLUCOSE; Start 09/03/18 at 12:30 Glucose (Glutose) 22.5 gm Q15M PRN PO DECREASED GLUCOSE; Start 09/03/18 at 12:30 Dextrose (D50w Syringe) 25 ml Q15M PRN IV DECREASED GLUCOSE; Start 09/03/18 at 12:30 Dextrose (D50w Syringe) 50 ml Q15M PRN IV DECREASED GLUCOSE; Start 09/03/18 at 12:30 Glucagon (Glucagen) 1 mg Q15M PRN IM DECREASED GLUCOSE; Start 09/03/18 at 12:30 Glucose (Glutose) 15 gm Q15M PRN BUCCAL DECREASED GLUCOSE; Start 09/03/18 at 12:30 Meds reviewed: Yes Allergies Coded Allergies: Penicillins (Verified Allergy, Severe, 07/06/17) Allergies Reviewed: Yes Labs/Studies Labs Reviewed: Reviewed by anesthesiologist Result Diagram: 09/03/18 0353 09/03/18 0354 Laboratory Tests 09/03/18 03:53 09/03/18 03:54 test: N/A Studies: ECG Pre-procedure Exam Last vitals Vital Signs Date Temp Pulse Resp B/P (MAP) Pulse Ox O2 O2 Flow FiO2 Time Delivery Rate 09/03/18 80 100/54 09:00 (69) 09/03/18 99.1 18 100 08:08 09/03/18 Room Air 02:41 Airway: Adequate mouth opening, Adequate thyromental dist Mallampati: Mallampati II Teeth: Normal Lung: Normal Heart: Normal ASA Physical Status ASA physical status: 2 Emergency: None Planned Anesthetic General/MAC: ETT Planned Pain Management Parenteral pain med Pre-operative Attestations Prior to commencing anesthesia and surgery, the patient was re-evaluated, there was verification of: *The patient's identity *The results of appropriate recent lab work and preoperative vital signs *The above evaluation not changing prior to induction *Anesthetic plan, risk benefits, alternative and complications discussed with patient/family; questions answered; patient/family understands, accepts and wishes to proceed. VALERIE MIRZA Sep 03, 2018 12:48
[2018-09-03] MEDS ORDERED: PROPOFOL 20 ML ONE (12:55)
--- NOTE | 2018-09-03 12:55 | CONS ---
Assessment/Plan Assessment/Plan Assessment/Plan (Daily) Acute cholecystitis Discussed medical management with outpatient gre[facility] versus surgery on this admission with the daughter and the patient. They wish to proceed now. Therefore, I discussed laparoscopic, possible open, cholecystectomy, possible cholangiogram. All benefits, risks, alternatives were discussed in detail. All questions answered. The patient elects to proceed. Consultation Date/Type/Reason Admit Date/Time Date/Time of Note DATE: 09/03/18 TIME: 12:51 Hx of Present Illness This is a 53-year-old female who presents to the emergency department complaining of epigastric pain across the abdomen for the last 2 days. Pain also radiated to her back. She feels much better today. She also states she said nausea and emesis. She denies fevers, or chills. She had multiple attacks of gallstones in the past. The last was 2 years ago. She was waiting for insurance in order to proceed with surgery.. She denies any fevers. Denies any chest pain or shortness of breath. 14 point review of systems was performed. Pertinent negatives and positives per HPI Past Medical History Medical History: diabetes, GERD, hypertension, other Home Meds Reported Medications Glimepiride* (Glimepiride*) 4 Mg Tablet, 4 MG PO WITH BREAKFAST, TAB 09/03/18 Calcium Carbonate* (Calcium Carbonate*) 600 MG Ca Tab, 600 MG PO DAILY, TAB 09/03/18 Sitagliptin* (Januvia*) 100 Mg Tablet, 100 MG PO DAILY, #30 TAB 09/03/18 Pantoprazole* (Pantoprazole*) 40 Mg Tablet.dr, 40 MG PO AC BREAKFAST, TAB 07/06/17 Loratadine* (Loratadine*) 10 Mg Tablet, 10 MG PO DAILY, #30 TAB 07/06/17 Linagliptin (TRADJENTA) 5 Mg Tablet, 5 MG PO DAILY, TAB 07/06/17 Metformin* (Glucophage*) 500 Mg Tab, 500 MG PO BID WITH MEALS, #60 TAB 07/06/17 Aspirin* (Aspirin* Chew) 81 Mg Tab.chew, 81 MG PO DAILY, TAB.CHEW 07/06/17 Medications Current Medications Pantoprazole (Protonix Tab) 40 mg AC BREAKFAST PO ; Start 09/03/18 at 07:00 Sodium Chloride 1,000 ml @ 80 mls/hr [id number] IV Last administered on 09/03/18at 02:58; Admin Dose 80 MLS/HR; Start 09/03/18 at 02:04 IV Flush (NS 3 ml) 3 ml PER PROTOCOL IV ; Start 09/03/18 at 02:30 Ondansetron HCl (Zofran Inj) 4 mg Q6H PRN IV NAUSEA/VOMITING; Start 09/03/18 at 02:30 Acetaminophen (Tylenol Tab) 650 mg Q6H PRN PO .PAIN 1-3 OR TEMP Last administered on 09/03/18at 09:44; Admin Dose 650 MG; Start 09/03/18 at 02:30 Hydromorphone HCl (Dilaudid) 0.5 mg Q4H PRN IV .SEVERE PAIN 7-10; Start 09/03/18 at 02:30 Docusate Sodium (Colace) 100 mg Q12H PRN PO .CONSTIPATION; Start 09/03/18 at 02:30 Bisacodyl (Dulcolax) 5 mg DAILY PRN PO .CONSTIPATION; Start 09/03/18 at 02:30 Metronidazole 100 ml @ 100 mls/hr Q6 IVPB Last administered on 09/03/18at 06:03; Admin Dose 100 MLS/HR; Start 09/03/18 at 06:00 Ciprofloxacin/ Dextrose 200 ml @ 200 mls/hr Q12 IVPB Last administered on 09/03/18at 12:00; Admin Dose 200 MLS/HR; Start 09/03/18 at 11:00 Ondansetron HCl (Zofran Inj) 4 mg BRIDGE ORDER PRN IV NAUSEA/VOMITING; Start 09/03/18 at 02:30; Stop 09/04/18 at 02:29 Acetaminophen (Tylenol Tab) 650 mg ER BRIDGE PRN PO .MILD PAIN 1-3 OR TEMP; Start 09/03/18 at 02:30; Stop 09/04/18 at 02:29 Linagliptin (Tradjenta) 5 mg DAILY PO ; Start 09/04/18 at 09:00 Diagnostic Test (Pha) (Accu-Chek) 1 ea 02 XX ; Start 09/04/18 at 02:00 Insulin Glargine (Lantus) 13 units DAILY@2000 SC ; Start 09/03/18 at 20:00 Insulin Aspart (Novolog Insulin Pen) NOVOLOG *MILD* ALGORITHM WITH MEALS BEDTIME SC ; Start 09/03/18 at 13:00 Miscellaneous Information 1 ea NOTE XX ; Start 09/03/18 at 12:30 Glucose (Glutose) 15 gm Q15M PRN PO DECREASED GLUCOSE; Start 09/03/18 at 12:30 Glucose (Glutose) 22.5 gm Q15M PRN PO DECREASED GLUCOSE; Start 09/03/18 at 12:30 Dextrose (D50w Syringe) 25 ml Q15M PRN IV DECREASED GLUCOSE; Start 09/03/18 at 12:30 Dextrose (D50w Syringe) 50 ml Q15M PRN IV DECREASED GLUCOSE; Start 09/03/18 at 12:30 Glucagon (Glucagen) 1 mg Q15M PRN IM DECREASED GLUCOSE; Start 09/03/18 at 12:30 Glucose (Glutose) 15 gm Q15M PRN BUCCAL DECREASED GLUCOSE; Start 09/03/18 at 12:30 Allergies: Coded Allergies: Penicillins (Verified Allergy, Severe, 07/06/17) Past Surgical History Past Surgical Hx: no surgical history Family History Significant Family History: no pertinent family hx Social History Alcohol Use: none Smoking Status: Never smoker Drug Use: none Exam/Review of Systems Exam Vitals Vital Signs Date Temp Pulse Resp B/P (MAP) Pulse Ox O2 O2 Flow FiO2 Time Delivery Rate 09/03/18 80 100/54 09:00 (69) 09/03/18 99.1 18 100 08:08 09/03/18 Room Air 02:41 Intake and Output 09/02/18 09/02/18 09/03/18 1515:00 23:00 07:00 IntakeIntake Total 360 ml BalanceBalance 360 ml Constitutional: alert, oriented, well developed, obese Head: normocephalic, atraumatic Neck: supple, non-tender Respiratory: clear to auscultation Cardiovascular: regular rate and rhythm Gastrointestinal: soft, other (Epigastric tenderness) Neurological: ALUMINUM POLISHER II-XII intact, nl mental status, nl speech Skin: nl turgor, rash or lesions Lymph: nl lymph nodes Results Result Diagram: 09/03/18 0353 09/03/18 0354 Results 24hrs Laboratory Tests Test 09/02/18 20:19 09/02/18 20:34 09/03/18 03:53 09/03/18 03:54 Urine Color STRAW Urine Clarity CLEAR Urine pH 7.0 Urine Specific 1.011 [place] Urine Ketones NEGATIVE Urine Nitrite NEGATIVE Urine Bilirubin NEGATIVE Urine Urobilinogen NEGATIVE Urine Leukocyte 1+ H Esterase Urine Microscopic 0 RBC Urine Microscopic 6 H WBC Urine Hemoglobin NEGATIVE Urine Glucose NEGATIVE Urine Total Protein NEGATIVE Urine Opiates Screen Negative Urine Barbiturates Negative Urine Amphetamines Negative Screen Urine Negative Benzodiazepines Screen Urine Cocaine Screen Negative Urine Cannabinoids Negative White Blood Count 17.4 #H 13.5 #H Red Blood Count 4.32 4.04 L Hemoglobin 12.8 12.1 Hematocrit 39.3 36.8 L Mean Corpuscular 91.0 91.1 Volume Mean Corpuscular 29.6 30.0 Hemoglobin Mean Corpuscular 32.6 32.9 Hemoglobin Concent Red Cell 11.8 12.0 Distribution Width Platelet Count 299 268 Mean Platelet Volume 10.3 10.8 H Immature 0.600 H 0.400 Granulocytes % Neutrophils % 75.1 73.8 Lymphocytes % 17.4 17.1 Monocytes % 5.5 7.0 Eosinophils % 0.9 1.3 Basophils % 0.5 0.4 Nucleated Red Blood 0.0 0.0 Cells % Immature 0.100 H 0.050 H Granulocytes # Neutrophils # 13.1 H 10.0 H Lymphocytes # 3.0 H 2.3 Monocytes # 1.0 H 1.0 H Eosinophils # 0.2 0.2 Basophils # 0.1 0.1 Nucleated Red Blood 0.0 0.0 Cells # Sodium Level 139 137 Potassium Level 4.0 4.0 Chloride Level 101 103 Carbon Dioxide Level 26 28 Anion Gap 12 6 Blood Urea Nitrogen 12 8 Creatinine 0.45 0.53 Est Glomerular > 60 > 60 Filtrat Rate mL/min Glucose Level 145 200 Calcium Level 11.1 H 9.8 Total Bilirubin 0.3 0.4 Direct Bilirubin 0.00 0.00 Indirect Bilirubin 0.3 0.4 Aspartate Amino 35 25 Transf (AST/SGOT) Alanine 28 34 Aminotransferase (AL T/SGPT) Alkaline Phosphatase 110 81 Total Protein 8.7 H 7.4 # Albumin 4.5 3.8 Globulin 4.20 H 3.60 H Albumin/Globulin 1.07 1.05 Ratio Lipase 66 63 Hemoglobin A1c 7.3 H Prothrombin Time 13.0 Prothrombin Time 1.0 Ratio INR International 0.97 Normalized Ratio Activated 26.7 Partial Thromboplast Time Magnesium Level 2.0 Triglycerides Level 61 Cholesterol Level 156 LDL Cholesterol, 72 Calculated HDL Cholesterol 72 Cholesterol/HDL 2.1 Ratio Thyroid Stimulating 1.550 Hormone (TSH) Test 09/03/18 03:55 09/03/18 09:46 09/03/18 12:10 Ethyl Alcohol Level < 10.0 H Bedside Glucose 157 136 Imaging Imaging Patient: SONJA SPEARS : 1965 Age: 53 Sex: F MR #: [id number] DOS: 09/03/18 0000 Ordering MD: LANCE GARRISON MD Location: E/R Room/Bed: PROCEDURE: Ultrasound gallbladder CLINICAL INDICATION: abdominal pain TECHNIQUE: Deutsch scale, color flow and Doppler ultrasound images of the abdomen. COMPARISON: None FINDINGS: Pancreas: The head and body of the pancreas are unremarkable. Tail is obscured by shadowing bowel gas. Vasculature: Aorta and inferior vena cava are normal in caliber. Liver: Liver demonstrates normal size and echotexture. No parenchymal lesions are identified. Normal directional flow toward the liver is demonstrated in the main portal vein. Gallbladder: There is a non mobile stone in the neck of the gallbladder. Gallbladder wall is mildly thickened and there is trace pericholecystic fluid. Biliary system: No significant dilatation of the intrahepatic or extrahepatic biliary system. Common bile duct measures 5 mm diameter. Right Kidney: Measures 8.8 cm in length. No hydronephrosis, intrarenal calcification or parenchymal lesion. No visible perinephric fluid. Additional findings: None IMPRESSION: Non mobile stone in the neck of the gallbladder. Mild associated wall thickening and trace pericholecystic fluid, consistent with acute cholecystitis. RPTAT: [facility] Physician Jerel Date Time Electronically viewed and signed by Physician Jerel on 09/03/2018 02:49 xB/ CC: LANCE GARRISON [id number] Medications Medication Current Medications Pantoprazole (Protonix Tab) 40 mg AC BREAKFAST PO ; Start 09/03/18 at 07:00 Sodium Chloride 1,000 ml @ 80 mls/hr [id number] IV Last administered on 09/03/18at 02:58; Admin Dose 80 MLS/HR; Start 09/03/18 at 02:04 IV Flush (NS 3 ml) 3 ml PER PROTOCOL IV ; Start 09/03/18 at 02:30 Ondansetron HCl (Zofran Inj) 4 mg Q6H PRN IV NAUSEA/VOMITING; Start 09/03/18 at 02:30 Acetaminophen (Tylenol Tab) 650 mg Q6H PRN PO .PAIN 1-3 OR TEMP Last administered on 09/03/18at 09:44; Admin Dose 650 MG; Start 09/03/18 at 02:30 Hydromorphone HCl (Dilaudid) 0.5 mg Q4H PRN IV .SEVERE PAIN 7-10; Start 09/03/18 at 02:30 Docusate Sodium (Colace) 100 mg Q12H PRN PO .CONSTIPATION; Start 09/03/18 at 02:30 Bisacodyl (Dulcolax) 5 mg DAILY PRN PO .CONSTIPATION; Start 09/03/18 at 02:30 Metronidazole 100 ml @ 100 mls/hr Q6 IVPB Last administered on 09/03/18at 06:03; Admin Dose 100 MLS/HR; Start 09/03/18 at 06:00 Ciprofloxacin/ Dextrose 200 ml @ 200 mls/hr Q12 IVPB Last administered on 09/03/18at 12:00; Admin Dose 200 MLS/HR; Start 09/03/18 at 11:00 Ondansetron HCl (Zofran Inj) 4 mg BRIDGE ORDER PRN IV NAUSEA/VOMITING; Start 09/03/18 at 02:30; Stop 09/04/18 at 02:29 Acetaminophen (Tylenol Tab) 650 mg ER BRIDGE PRN PO .MILD PAIN 1-3 OR TEMP; Start 09/03/18 at 02:30; Stop 09/04/18 at 02:29 Linagliptin (Tradjenta) 5 mg DAILY PO ; Start 09/04/18 at 09:00 Diagnostic Test (Pha) (Accu-Chek) 1 ea 02 XX ; Start 09/04/18 at 02:00 Insulin Glargine (Lantus) 13 units DAILY@2000 SC ; Start 09/03/18 at 20:00 Insulin Aspart (Novolog Insulin Pen) NOVOLOG *MILD* ALGORITHM WITH MEALS BEDTIME SC ; Start 09/03/18 at 13:00 Miscellaneous Information 1 ea NOTE XX ; Start 09/03/18 at 12:30 Glucose (Glutose) 15 gm Q15M PRN PO DECREASED GLUCOSE; Start 09/03/18 at 12:30 Glucose (Glutose) 22.5 gm Q15M PRN PO DECREASED GLUCOSE; Start 09/03/18 at 12:30 Dextrose (D50w Syringe) 25 ml Q15M PRN IV DECREASED GLUCOSE; Start 09/03/18 at 12:30 Dextrose (D50w Syringe) 50 ml Q15M PRN IV DECREASED GLUCOSE; Start 09/03/18 at 12:30 Glucagon (Glucagen) 1 mg Q15M PRN IM DECREASED GLUCOSE; Start 09/03/18 at 12:30 Glucose (Glutose) 15 gm Q15M PRN BUCCAL DECREASED GLUCOSE; Start 09/03/18 at 12:30 KERI CARRION MD Sep 03, 2018 12:55
[2018-09-03] MEDS ORDERED: ROCURONIUM 50 MG INJ ONE (12:56)
[2018-09-03] MEDS ORDERED: ONDANSETRON 4 MG INJ ONE (12:57)
[2018-09-03] MEDS ORDERED: DEXAMETHASONE 4 MG/ML 5 ML INJ ONE (12:57)
--- NOTE | 2018-09-03 13:04 | SIPON ---
Date/Time of Note Date/Time of Note DATE: 09/03/18 TIME: 13:04 Operative Report Preoperative Diagnosis Acute cholecystitis Postoperative Diagnosis Same Operation/Procedure Performed Laparoscopic cholecystectomy Surgeon see signature line pastrycook's assistant None Anesthesia: general Estimated blood loss: minimal Transfusion Required none Specimen Gallbladder Grafts/Implants none Complications none KERI CARRION MD Sep 03, 2018 13:04
--- NOTE | 2018-09-03 13:04 | OPR ---
Date/Time of Note Date/Time of Note DATE: 09/03/18 TIME: 13:03 Operative Report Preoperative Diagnosis Acute cholecystitis Postoperative Diagnosis Same Operation/Procedure Performed Laparoscopic cholecystectomy Surgeon see signature line Net Developer Architect None Anesthesia Type: general Anesthesiologist: VALERIE MIRZA Estimated Blood Loss: minimal Transfusion none Specimen Gallbladder Grafts/Implants none Complications none Pt Condition Post Procedure: stable Disposition: PACU Indications The patient is a 53-year-old female with recurrent symptomatic cholelithiasis. Ultrasound revealed stone stuck in the gallbladder neck and findings consistent with acute cholecystitis.. Normal LFTs She has had prior visits to the ER for similar symptoms. I discussed proceeding with a laparoscopic, possible open, cholecystectomy, possible cholangiogram. All benefits, risks, alternatives discussed in detail. All questions were answered. The patient elects to proceed. Procedure Description The patient was brought to operative room placed supine on the table. After preop antibiotics and SCDs were applied, the patient was intubated. The abdomen was cleaned, prepped, draped in usual sterile fashion. All incisions were infiltrated with 1% lidocaine with epi and half percent Marcaine prior to incision. An 11 mm incision was made in the umbilicus. Using a laparoscope obtained tr ocCoiney, the abdomen was entered under direct vision insufflated 50 mils of mercury CO2. The following trochars in place direct vision: The right lower quadrant 5 mm, a right upper quadrant 5 mm, and a subxiphoid 5 mm. The 5 mm umbilical trocar was exchanged 11 mm and direct vision. The gallbladder was edematous. It was consistent with acute on chronic cholecystitis. The gallbladder was grasped at the fundus and retracted over the liver. There were omental adhesions attached to the gallbladder which were dissected free with electrocautery. I identified Tracy's pouch. The peritoneum underneath Rodgers's was scored medially and laterally. I was then able to dissect out and skeletonized the cystic duct and artery. I dissected the gallbladder off the cystic plate of the liver. I now had my critical view of safety where I saw my duct and artery with no intervening structures. The duct and artery were then clipped twice proximally and once distally individually and divided. The gallbladder was then removed from the gallbladder fossa with electrocautery and placed in Endo Catch bag. I irrigated and aspirated out the right upper quadrant until effluent was clear. I visualized the gallbladder fossa. It was hemostatic. There was no evidence of bleeding or bile staining. At this point, I desufflated the abdomen and removed all trochars. The fascia of the 12 mm trocar site was closed with 0 Vicryl. Skin incisions were closed for Monocryl, Mastisol, and Steri-Strips. A 2 x 2 gauze and Tegaderm was placed over the umbilicus region only. The patient tolerated the procedure well. She was extubated in the OR and transferred to the recovery room in stable condition. KREI CARRION MD Sep 03, 2018 13:04
[2018-09-03] MEDS ORDERED: morphine 2 MG INJ IV PRN (13:30)
[2018-09-03] MEDS ORDERED: LEVOFLOXACIN 500MG/D5W (PMX) 100 ML IVPB SCH (13:30)
[2018-09-03] MEDS ORDERED: IBUPROFEN 600 MG TAB PO PRN (13:30)
[2018-09-03] MEDS ORDERED: NEOSTIGMINE 10 MG INJ ONE (14:18)
--- NOTE | 2018-09-03 14:23 | PAC ---
Date/Time of Note Date/Time of Note DATE: 09/03/18 TIME: 14:23 Post-Anesthesia Notes Post-Anesthesia Note Last documented vital signs Vital Signs Date Temp Pulse Resp B/P (MAP) Pulse Ox O2 O2 Flow FiO2 Time Delivery Rate 09/03/18 99 80 100/54 96 1423 (69) 09/03/18 99.1 18 100 08:08 09/03/18 Room Air 02:41 Activity: WNL Respiratory function: WNL Cardiovascular function: WNL Mental status: Baseline Pain reasonably controlled: Yes Hydration appropriate: Yes Nausea/Vomiting absent: Yes VALERIE MIRZA Sep 03, 2018 14:23
[2018-09-03] MEDS ORDERED: ALBUTEROL 0.083% (NEB) 2.5 MG/3 ML AMP HHN PRN (14:30)
[2018-09-03] MEDS ORDERED: EPHEDrine SULFATE 50 MG/5 ML SYG IV PRN (14:30)
[2018-09-03] MEDS ORDERED: MEPERIDINE 25 MG INJ IV PRN (14:30)
[2018-09-03] MEDS ORDERED: HYDROmorphONE 1 MG/5 ML IV SYRINGE IV PRN ×3 (14:30)
[2018-09-03] MEDS ORDERED: LABETALOL HCL 20MG INJ IV PRN (14:30)
[2018-09-03] MEDS ORDERED: FENTAnyl 50 MCG/ML VIAL IV PRN ×3 (14:30)
[2018-09-03] MEDS ORDERED: hydrALAzine 20 MG INJ IV PRN (14:30)
[2018-09-03] MEDS ORDERED: OXYCODONE/ACETAMINOPHEN (5/325) TAB PO PRN ×2 (14:30)
[2018-09-03] MEDS ORDERED: METOCLOPRAMIDE 10 MG INJ IV PRN (14:30)
[2018-09-03] MEDS ORDERED: DIPHENHYDRAMINE 50 MG INJ IV PRN (14:30)
[2018-09-03] MEDS ORDERED: MIDAZOLAM 1 MG/ML 2 ML INJ IV PRN (14:30)
[2018-09-03] MEDS: D5-NS + KCL 20 MEQ 1,000 ML IV SCH ×2 (15:43→23:04)
[2018-09-03] MEDS ORDERED: INSULIN GLARGINE [LANTus] (100 UNITS/ML) SYG SC SCH (20:00)
[2018-09-04] MEDS: HYDROCODONE/APAP (10/325) TAB PO PRN ×2 (00:09→16:15)
[2018-09-04] MEDS ORDERED: ACCU-CHEK XX SCH (02:00)
[2018-09-04 02:23] VITALS: BP 114/57; PULSE 88; RESP 20
[2018-09-04] MEDS: D5-NS + KCL 20 MEQ 1,000 ML IV SCH ×2 (03:21→09:04)
[2018-09-04] MEDS: metroNIDAZOLE 500 MG/NS (PMX) 100 ML IVPB SCH ×2 (05:19→12:00)
[2018-09-04] MEDS: PANTOPRAZOLE (EC) 40 MG TAB PO SCH (06:22)
[2018-09-04] MEDS ORDERED: ENOXAPARIN 40 MG/0.4 ML SYG SC SCH (07:00)
[2018-09-04 08:06] VITALS: BP 99/52; PULSE 62; RESP 16
[2018-09-04] MEDS: INSULIN ASPART [NOVOLOG] 3 ML PEN SC SCH ×2 (08:17→12:00)
[2018-09-04] MEDS ORDERED: LINAGLIPTIN 5 MG TABLET PO SCH (09:00)
--- NOTE | 2018-09-04 09:01 | PN ---
Date/Time of Note Date/Time of Note DATE: 09/04/18 TIME: 09:00 Assessment/Plan Lines/Catheters IV Catheter Type (from Nrsg): Peripheral IV Mohan in Place (from Nrsg): No Assessment/Plan Assessment/Plan Postop day #1 status post lap tong Doing well. Tolerating soft diet WBC likely reactive. LFTs within normal limits Okay to discharge from surgical perspective later today. Subjective 24 Hr Interval Summary Constitutional: no complaints, improved Feeding: advancing diet Pain Control: well controlled Exam/Review of Systems Vital Signs Vitals Vital Signs Date Temp Pulse Resp B/P (MAP) Pulse Ox O2 O2 Flow FiO2 Time Delivery Rate 09/04/18 97.8 62 16 99/52 (68) 96 08:06 09/03/18 Nasal 21:00 Cannula 09/03/18 2.0 15:41 Intake and Output 09/03/18 09/03/18 09/04/18 1515:00 23:00 07:00 IntakeIntake Total 1880 ml 1000 ml 2100 ml OutputOutput Total 20 ml BalanceBalance 1860 ml 1000 ml 2100 ml Exam Constitutional: alert, oriented, well developed Respiratory: clear to auscultation, normal air movement Cardiovascular: regular rate and rhythm Gastrointestinal: soft, non-tender Results Result Diagram: 09/04/18 0524 09/04/18 0524 KERI CARRION MD Sep 04, 2018 09:01
--- NOTE | 2018-09-04 09:20 | PDOCDIS ---
Discharge Instructions CONDITION [id number] Patient Condition: [id number] Stable HOME CARE INSTRUCTIONS: [id number] Your diet recommendation is: [id number] Carbohydrate controlled diet FOLLOW UP/APPOINTMENTS Follow-up Plan 1. Follow-up with primary care physician in 1 week 2. Follow-up with Dr. Conner in his clinic in 1 week. [address] [facility] [address] [place] [address] Office Post operative Instructions *Do not lift anything more than 25 pounds for 6 to 8 weeks *Do not swim or take hot tub bath for 2weeks *Remove dressing and May shower-Use mild soap around site and pat dry *If you notice any oozing, bleeding or other drainage or having fever or chills from site please contact Surgeon's office-If unable to get office, you may go to nearest emergency room MESERET JACKMAN NP Sep 04, 2018 09:20
[2018-09-04] MEDS ORDERED: CIPR500T4 PO (09:22)
[2018-09-04] MEDS ORDERED: METR-122 PO (09:22)
--- NOTE | 2018-09-04 09:26 | DS ---
Date/Time of Note Date/Time of Note DATE: 09/04/18 TIME: 09:25 Discharge Summary Admission/Discharge Info Admit Date/Time Sep 03, 2018 at 02:08 Discharge Date/Time Discharge Diagnosis 1. Acute cholecystitis, laparoscopic cholecystectomy. 2. Possible UTI. Patient Condition: Stable Consults Dr. Conner, surgeon Procedures 09/02/2018. CT abdomen and pelvis IMPRESSION: 1. Acute cholecystitis. No calcified gallstones identified. 2. Sigmoid diverticulosis. 2018. Laparoscopic cholecystectomy. Hospital Course 53-year-old obese female with a history of diabetes, admitted with acute cholecystitis. Patient underwent laparoscopic cholecystectomy with Dr. Conner on 09/03/2017. Postoperatively patient did well. She did not have any fevers. She was able to tolerate diet and activities. Incisional site remained intact with no evidence of infection. Patient still continued to have white count elevation, although decreased from admission. She also had a urinalysis positive for 1+ leukocyte esterase. As such, we have decided to keep her on antibiotic to be continued for 5 more days. Approximately 60 m spent on coordinating discharge on this patient Patient is seen in collaboration with Dr. Wetzel. Home Meds Active Scripts Docusate Sodium* (Colace*) 100 Mg Capsule, 100 MG PO BID, #60 CAP Prov:JACKMAN,MESERET V. COMPUTER OPERATIONS SPECIALIST 09/04/18 Hydrocodone/Acetaminophen ([place] 5-325 Tablet) 1 Each Tablet, 1 EACH PO Q6 for pain, #15 TAB Prov:JACKMANMESERET V. COMPUTER OPERATIONS SPECIALIST 09/04/18 Metronidazole* (Metronidazole*) 500 Mg Tablet, 500 MG PO TID for 5 Days, #15 TAB Prov:JACKMANJORGE AA V. COMPUTER OPERATIONS SPECIALIST 09/04/18 Ciprofloxacin Hcl* (Ciprofloxacin Hcl*) 500 Mg Tablet, 500 MG PO BID, #10 TAB Prov:JACKMAN,MESERET V. COMPUTER OPERATIONS SPECIALIST 09/04/18 Reported Medications Glimepiride* (Glimepiride*) 4 Mg Tablet, 4 MG PO WITH BREAKFAST, TAB 09/03/18 Calcium Carbonate* (Calcium Carbonate*) 600 MG Ca Tab, 600 MG PO DAILY, TAB 09/03/18 Sitagliptin* (Januvia*) 100 Mg Tablet, 100 MG PO DAILY, #30 TAB 09/03/18 Pantoprazole* (Pantoprazole*) 40 Mg Tablet.dr, 40 MG PO AC BREAKFAST, TAB 07/06/17 Loratadine* (Loratadine*) 10 Mg Tablet, 10 MG PO DAILY, #30 TAB 07/06/17 Linagliptin (TRADJENTA) 5 Mg Tablet, 5 MG PO DAILY, TAB 07/06/17 Metformin* (Glucophage*) 500 Mg Tab, 500 MG PO BID WITH MEALS, #60 TAB 07/06/17 Discontinued Reported Medications Aspirin* (Aspirin* Chew) 81 Mg Tab.chew, 81 MG PO DAILY, TAB.CHEW 07/06/17 Follow-up Plan 1. Follow-up with primary care physician in 1 week 2. Follow-up with Dr. Conner in his clinic in 1 week. Post operative Instructions *Do not lift anything more than 25 pounds for 6 to 8 weeks *Do not swim or take hot tub bath for 2weeks *Remove dressing and May shower-Use mild soap around site and pat dry *If you notice any oozing, bleeding or other drainage or having fever or chills from site please contact Surgeon's office-If unable to get office, you m ay go to nearest emergency room Primary Care Provider Care Physician No Primary Pending Labs Laboratory Tests Test 09/03/18 09:46 09/03/18 12:10 09/03/18 14:43 09/03/18 17:18 Bedside 157 136 191 214 Glucose mg/dL (70-220) mg/dL (70-220) mg/dL (70-220) mg/dL (70-220) Test 09/03/18 20:11 09/04/18 01:30 09/04/18 05:24 09/04/18 08:14 Bedside 253 123 149 Glucose mg/dL (70-220) mg/dL (70-220) mg/dL (70-220) White Blood 14.5 Count 10^3/ul (4.8-1 0.8) Red Blood 3.70 Count 10^6/ul (4.20- 5.40) Hemoglobin 11.0 g/dl (12.0-16. 0) Hematocrit 34.2 % (37.0-47.0) Mean 92.4 Corpuscular fl (82.0-101.0 Volume ) Mean 29.7 Corpuscular pg (29.0-33.0) Hemoglobin Mean 32.2 Corpuscular g/dl (32.0-37. Hemoglobin Conc 0) ent Red Cell 11.9 Distribution % (11.5-14.5) Width Platelet Count 251 10^3/UL (140-4 15) Mean Platelet 10.2 Volume fl (7.4-10.4) Immature 0.600 Granulocytes % % (0.001-0.429 ) Neutrophils % 76.4 % (39.0-77.0) Lymphocytes % 15.4 % (15.0-51.0) Monocytes % 7.3 % (0.0-11.0) Eosinophils % 0.1 % (0.0-7.0) Basophils % 0.2 % (0.0-2.0) Nucleated Red 0.0 Blood Cells % /100WBC (0.0-0 .0) Immature 0.090 Granulocytes # 10^3/ul (0.0-0 .031) Neutrophils # 11.1 10^3/ul (1.6-7 .5) Lymphocytes # 2.2 10^3/ul (0.8-2 .9) Monocytes # 1.1 10^3/ul (0.3-0 .9) Eosinophils # 0.0 10^3/ul (0.0-0 .5) Basophils # 0.0 10^3/ul (0.0-0 .1) Nucleated Red 0.0 Blood Cells # 10^3/ul (0.0-0 .0) Sodium Level 137 mmol/L (135-14 4) Potassium 4.1 Level mmol/L (3.5-5. 1) Chloride Level 105 mmol/L (97-110 ) Carbon Dioxide 26 Level mmol/L (21-31) Anion Gap 6 (5-13) Blood Urea 10 Nitrogen mg/dl (7-20) Creatinine 0.53 mg/dl (0.44-1. 00) Est Glomerular > 60 Filtrat mL/min (>60) Rate mL/min Glucose Level 165 mg/dl (70-220) Calcium Level 9.8 mg/dl (8.4-10. 2) Total 0.3 Bilirubin mg/dl (0.2-1.3 ) Direct 0.00 Bilirubin mg/dl (0.00-0. 20) Indirect 0.3 Bilirubin mg/dl (0-1.1) Aspartate Amino 40 Transf (AST/SGO IU/L (15-46) T) Alanine 54 Aminotransferas IU/L (13-69) e (ALT/SGPT) Alkaline 66 Phosphatase IU/L (42-121) Total Protein 7.0 g/dl (6.1-8.1) Albumin 3.5 g/dl (3.3-4.9) Globulin 3.50 g/dl (1.3-3.2) Albumin/Globuli 1.00 n Ratio Lipase 35 U/L (23-300) MESERET JACKMAN V. COMPUTER OPERATIONS SPECIALIST Sep 04, 2018 09:26
[2018-09-04] MEDS: CIPROFLOXACIN 400MG/D5W 200 ML IVPB SCH (10:15)
[2018-09-04] MEDS ORDERED: HYDR-4011 PO (10:35)
[2018-09-04] MEDS ORDERED: DOCU-144 PO (10:35)
== END 2018-09-04 16:25 | disposition home or self-care (01) | DRG 418 ==
LOC: FTE 15:06 → PP2 09-03 02:08
PROVIDERS: ADMIT Family Medicine; ATTEND Family Medicine
PROC: 0FT44ZZ Resection of Gallbladder, Percutaneous Endoscopic Approach (ICD-10-PCS; principal; 2018-09-03 13:00)
DX: K80.00 Calculus of gallbladder with acute cholecystitis without obstruction (principal); Z68.41 Body mass index [BMI] 40.0-44.9, adult; E66.01 Morbid (severe) obesity due to excess calories; K21.9 Gastro-esophageal reflux disease without esophagitis; E11.9 Type 2 diabetes mellitus without complications; K29.70 Gastritis, unspecified, without bleeding; K57.30 Diverticulosis of large intestine without perforation or abscess without bleeding; Z79.4 Long term (current) use of insulin; Z79.82 Long term (current) use of aspirin
CPT/HCPCS: 71045; 74176; 76705; 80053; 80061; 80307; 81001; 82306; 82962; 83036; 83690; 83735; 84443; 85025; 85610; 85730; 88304; 93005; 96374; 96375; J0744; J1100; J1200; J1650; J1815; J2405; J2710; J2765; J3010; J3480; J7030